=== PATIENT | female | born 1985 ===

== ENCOUNTER → 2023-06-16 | Outpatient (CLI) | payer OTHER ==
[2023-06-18 19:26] LABS: HSV 1 SUBTYPE BY PCR Detected; HSV 2 SUBTYPE BY PCR Not Detected; HSV SUBTYPE SOURCE VAGINA
== END | disposition home or self-care (01) ==
LOC: LAB 12:00 → LAB SHORT 12:00
PROVIDERS: Registered Nurse Community Health
DX: N94.9 Unspecified condition associated with female genital organs and menstrual cycle (principal)
CPT/HCPCS: 87529

== ENCOUNTER → 2023-12-09 | Outpatient (CLI) | payer OTHER ==
[2023-12-12 09:39] LABS: ANTI-MULLERIAN HORMONE 2.769 ng/mL (0.176-11.705)
== END ==
LOC: LAB SHORT 12:51 → LAB 12:51
PROVIDERS: Registered Nurse Community Health
DX: N91.2 Amenorrhea, unspecified (principal)
CPT/HCPCS: 83520

== ENCOUNTER → 2024-08-10 | Outpatient (CLI) | payer BC, OTHER ==
[2024-08-10 20:58] LABS: Percent Saturation 57.1 % (15.0-50.0)
[2024-08-10 21:26] LABS: Albumin, Blood 3.7 g/dL (3.4-5.0); Albumin/Globulin Ratio 0.8 (0.8-1.8); Bun/Creatinine Ratio 12.6 (12.0-20.0); Calcium, Blood 9.3 mg/dL (8.5-10.1); Creatinine, Blood 0.79 mg/dL (0.40-1.00); Globulin, Blood 4.4 g/dL (2.2-4.0); Potassium, Blood 2.3 mmol/L (3.5-5.5); Total Protein, Blood 8.1 g/dL (6.4-8.2)
== END ==
LOC: LAB SHORT 15:26 → LAB 15:26
PROVIDERS: Student in an Organized Health Care Education/Training Program
DX: D50.9 Iron deficiency anemia, unspecified (principal); F10.10 Alcohol abuse, uncomplicated; R89.9 Unspecified abnormal finding in specimens from other organs, systems and tissues
CPT/HCPCS: 80053; 82607; 82728; 82746; 83540; 83550